=== PATIENT | male | born 1960 | race Caucasian/White ===

== ENCOUNTER → 2021-12-26 | Outpatient (CLI) | payer BC, OTHER | LOC: M RAD 08:54 | PROVIDERS: ATTEND Internal Medicine | DX: I15.0 Renovascular hypertension (principal); N28.1 Cyst of kidney, acquired ==

== ENCOUNTER → 2022-11-06 | Outpatient (REF) | payer BC, OTHER | LOC: M LAB REF 17:09 | PROVIDERS: ATTEND Otolaryngology | DX: H66.92 Otitis media, unspecified, left ear (principal) ==